=== PATIENT | male | born 1950 | race African-American/Black ===

== ENCOUNTER 2017-01-10 12:42 | Inpatient (IN) | payer MEDICARE ==
[2017-01-10] MEDS ORDERED: NORMAL SALINE 250 ML IV PRN ×2 (13:03)
[2017-01-10] MEDS ORDERED: NORMAL SALINE 1000 ML 1,000 ML IV PRN ×2 (13:03→21:39)
--- NOTE | 2017-01-10 13:03 | ER Document Report ---
ED General - General Stated Complaint: WEAKNESS Mode of Arrival: Medic Information source: Patient, Dr. Office Notes: 66 yr old male presents with complaints of hgb of 5.5 with hypotension, weakness. pt noted ot have initial bright red rectal bleeding sat that turned ot dark black stools. pt takes ibuprofen 400mg bid, denies any other blood thinners. pt denies any vomiting denies any previous similar episodes - HPI Onset: Other - Three-day duration Onset/Duration: Persistent Quality of pain: No pain Severity: Severe Pain Level: Denies Associated symptoms: Weakness Exacerbated by: Denies Relieved by: Denies Similar symptoms previously: No Recently seen / treated by doctor: Yes - Related Data Allergies/Adverse Reactions: aspirin Allergy (Verified 01/10/17 13:10) Past Medical History - Social History Smoking Status: Never Smoker Cigarette use (# per day): No Chew tobacco use (# tins/day): No Smoking Education Provided: No Family History: Reviewed & Not Pertinent Review of Systems - Review of Systems Notes: REVIEW OF SYSTEMS: CONSTITUTIONAL : Denies fever, chills, or sweats. Denies recent illness. EENT: Denies eye, ear, throat, or mouth pain or symptoms. Denies nasal or sinus congestion or discharge. Denies throat, tongue, or mouth swelling or difficulty swallowing. CARDIOVASCULAR: Denies chest pain. Denies palpitations or racing or irregular heart beat. Denies ankle edema. RESPIRATORY: Denies cough, cold, or chest congestion. Denies shortness of breath, difficulty breathing, or wheezing. GASTROINTESTINAL: Denies abdominal pain or distention. Denies nausea, vomiting , or diarrhea. Denies blood in vomitus, stools, or per rectum. Denies black, tarry stools. Denies constipation. GENITOURINARY: Denies difficulty urinating, painful urination, burning, frequency, blood in urine, or discharge. MUSCULOSKELETAL: Denies back or neck pain or stiffness. Denies joint pain or swelling. SKIN: Denies rash, lesions or sores. HEMATOLOGIC : Denies easy bruising or bleeding. LYMPHATIC: Denies swollen, enlarged glands. NEUROLOGICAL: Admits to weakness PSYCHIATRIC: Denies anxiety or stress. Denies depression, suicidal ideation, or homicidal ideation. ALL OTHER SYSTEMS REVIEWED AND NEGATIVE. Dictation was performed using [email or web address] recognition software PHYSICAL EXAMINATION: GENERAL: Well-appearing, well-nourished and in no acute distress. HEAD: Atraumatic, normocephalic. EYES: Pupils equal round and reactive to light, extraocular movements intact, sclera anicteric, conjunctiva are normal. ENT: Nares patent, oropharynx clear without exudates. Moist mucous membranes. NECK: Normal range of motion, supple without lymphadenopathy LUNGS: Breath sounds clear to auscultation bilaterally and equal. No wheezes rales or rhonchi. HEART: Regular rate and rhythm without murmurs ABDOMEN: Soft, nontender, nondistended abdomen. No guarding, no rebound. No masses appreciated. Black stools Musculoskeletal: Normal range of motion, no pitting or edema. No cyanosis. NEUROLOGICAL: Cranial nerves grossly intact. Normal speech, normal gait. Normal sensory, motor exams PSYCH: Normal mood, normal affect. SKIN: Warm, Dry, normal turgor, no rashes or lesions noted. Physical Exam - Vital signs Vitals: Resp BP Pulse Ox 19 84/55 L 100 01/10/17 12:48 01/10/17 12:48 01/10/17 12:48 Course - Re-evaluation Re-evalutation: 01/10/17 13:03 pt immediately evaluated in the room, noted ot be hypotensive, given iv fluids with 2 large bore ivs, emergent blood ordered. Dr Cristina ford 01/10/17 13:14 Dr Cristina ford again , he is in the middle of a procedure , will be given message, emergent blood on the way 01/10/17 13:17 Dr Goldberg will admit to icu, protonix given 01/10/17 13:23 pt continues ot be hypotensive 01/10/17 13:47 Patient's blood pressure is starting to improve, 2 units of blood have been given and he is already received 2 L of fluid - Vital Signs Vital signs: Temp Pulse Resp BP Pulse Ox 33 H 75/53 L 100 01/10/17 13:36 01/10/17 13:36 01/10/17 13:36 - Laboratory Result Diagrams: 01/10/17 12:54 01/10/17 12:54 Laboratory results interpreted by me: 01/10/17 01/10/17 12:54 12:54 Chloride 113 H Carbon Dioxide 16 L Creatinine 1.82 H Est GFR ( Amer) 45 L Est GFR (Non-Af Amer) 38 L Glucose 112 H Calcium 8.3 L Total Bilirubin 3.7 H Direct Bilirubin 2.9 H AST 314 H ALT 198 H Alkaline Phosphatase 214 H Albumin 2.6 L Crossmatch See Detail Critical Care Note - Critical Care Note Total time excluding time spent on procedures (mins): 34 Comments: 34 minutes of critical care time spent in direct contact evaluating and reevaluating the patient, treating symptoms, reviewing labs and studies and speaking with family and consultants excluding any procedures Discharge - Discharge Clinical Impression: GI bleed due to NSAIDs, Hypotensive episode Anemia Qualifiers: Anemia type: other cause Other causes of anemia: other cause, not classified Qualified Code(s): D64.89 - Other specified anemias Condition: Critical Disposition: ADMITTED INPATIENT Admitting Provider: Hospitalist Unit Admitted: ICU
[2017-01-10] MEDS ORDERED: PANTOPRAZOLE SODIUM 40 MG VIAL IV ONE (13:15)
[2017-01-10 13:24] LABS: HEMATOCRIT 17.4 % (37.9-51.0); HGB HCT DIFFERENCE -0.9; MEAN CORPUSCULAR HEMOGLOBIN 40.4 pg (27.0-33.4); MEAN CORPUSCULAR HGB CONC 31.9 g/dL (32.0-36.0); RED BLOOD COUNT 1.37 10^6/uL (4.35-5.55); RED CELL DISTRIBUTION WIDTH 17.5 % (11.5-14.0); WHITE BLOOD COUNT 13.3 10^3/uL (4.0-10.5)
[2017-01-10] MEDS: PANTOPRAZOLE SODIUM 40 MG VIAL IV PRN ×2 (13:26→23:07)
[2017-01-10 13:39] LABS: ALANINE AMINOTRANSFERASE 198 U/L (21-72); ALBUMIN 2.6 g/dL (3.5-5.0); ALKALINE PHOSPHATASE 214 U/L (38-126); ANION GAP 14 (5-19); ASPARTATE AMINO TRANSFERASE 314 U/L (17-59); BILIRUBIN,DIRECT 2.9 mg/dL (0.0-0.4); BILIRUBIN,TOTAL 3.7 mg/dL (0.2-1.3); BLOOD UREA NITROGEN 16 mg/dL (7-20); CALCIUM 8.3 mg/dL (8.4-10.2); CARBON DIOXIDE 16 mmol/L (22-30); CHLORIDE 113 mmol/L (98-107); CREATININE RESULT 1.82 mg/dL (0.52-1.25); GLUCOSE 112 mg/dL (75-110); SODIUM 142.6 mmol/L (137-145)
[2017-01-10 14:03] LABS: HEMOGLOBIN 5.5 g/dL (13.5-17.0)
[2017-01-10] MEDS ORDERED: ONDANSETRON HCL INJ/PF 4 MG/2 ML SDV IV PRN (14:12)
[2017-01-10 14:13] LABS: BASOPHILS % (MANUAL) 0 % (0-2); EOSINOPHILS % (MANUAL) 0 % (0-6); LYMPHOCYTES % (MANUAL) 16 % (13-45); NUCLEATED RED BLOOD CELLS 4 /100 WBC (0); TOTAL CELLS COUNTED 100
[2017-01-10 14:16] LABS: ANISOCYTOSIS 1+; HYPOCHROMASIA 1+; POLYCHROMASIA 1+; TARGET CELLS SLIGHT; TOXIC VACUOLATION PRESENT
[2017-01-10 14:17] LABS: TOXIC GRANULATION SLIGHT
[2017-01-10 14:18] LABS: BAND NEUTROPHILS % (MANUAL) 20 % (3-5); MEAN CORPUSCULAR VOLUME 127 fl (80-97)
[2017-01-10] MEDS ORDERED: DEXTROSE 50%-WATER 25 GM/50 ML DISP.SYRIN IV PRN ×2 (14:24)
[2017-01-10] MEDS ORDERED: DEXTROSE 40% GEL 15 GM TUBE PO PRN ×2 (14:24)
[2017-01-10] MEDS ORDERED: INSULIN LISPRO 100 UNIT/ML 3 ML VIAL SUBCUT PRN (14:24)
[2017-01-10] MEDS ORDERED: GLUCAGON,HUMAN RECOMB 1 MG INJ IM PRN (14:24)
[2017-01-10 14:46] LABS: CREATINE KINASE MB 0.27 ng/mL (<4.55); TROPONIN I 0.024 ng/mL
--- NOTE | 2017-01-10 15:24 | PDOC H&P ---
History of Present Illness Admission Date/PCP: 01/10/17 14:18 Patient complains of: Melanotic stool History of Present Illness: LORE STERLING is a 66 year old male who is followed at the [facility] who presented after went to his primary care doctor found to have a hemoglobin of 5.5. Patient presented to our emergency room and was noted to be hypotensive and was started on IV fluids. Patient also was transfused 4 units of packed red blood cells. Since then his blood pressure has improved. The patient reports that on Monday he had an episode of bright red blood per rectum and then symptoms had melanotic stool. Patient does use nonsteroidals every day. The patient denies any alcohol use. He does relate that he has a history of liver cancer but was uncertain as to whether or not he has any type of variceal problems. The patient while in the patient did have an episode of chest pain this was when his blood pressure was in the 70s. He denies having any cardiac history. He denies any shortness of breath but has felt fatigued for the last several days. He denies any hematemesis. He denies alcohol use. Past Medical History Cardiac Medical History: Reports: Hypertension Endocrine Medical History: Reports: Diabetes Mellitus Type 2 Malignancy Medical History: Reports: Liver Cancer Hematology: Reports: None Infectious Medical History: Reports: None Past Surgical History Past Surgical History: Reports: None Social History Information Source: Patient Lives with: Family Smoking Status: Never Smoker Frequency of Alcohol Use: None Hx Recreational Drug Use: No Drugs: None Hx Prescription Drug Abuse: No - Advance Directive Resuscitation Status: Full Code Family History Family History: DM. denies: CAD Parental Family History Reviewed: Yes Children Family History Reviewed: No Sibling(s) Family History Reviewed.: No Medication/Allergy Home Medications: Amlodipine Besylate [Norvasc 10 mg Tablet] 10 mg PO DAILY 01/10/17 Ibuprofen [Motrin 400 mg Tablet] 400 mg PO Q12HP PRN 01/10/17 Loratadine 10 mg PO DAILY 01/10/17 Metformin HCl [Glucophage] 500 mg PO BID 01/10/17 Terazosin HCl [Hytrin] 5 mg PO DAILY 01/10/17 Allergies/Adverse Reactions: aspirin Allergy (Verified 01/10/17 13:10) Review of Systems Constitutional: PRESENT: fatigue. ABSENT: fever(s), night sweats, weight gain, weight loss Eyes: ABSENT: visual disturbances Ears: ABSENT: hearing changes Cardiovascular: PRESENT: chest pain, dyspnea on exertion. ABSENT: edema, orthropnea, palpitations Respiratory: PRESENT: dyspnea. ABSENT: cough, hemoptysis Gastrointestinal: PRESENT: abdominal pain, melena. ABSENT: coffee ground emesis , hematemesis Genitourinary: ABSENT: dysuria, hematuria Musculoskeletal: ABSENT: joint swelling Integumentary: ABSENT: rash, wounds Neurological: ABSENT: abnormal gait, abnormal speech, confusion, dizziness, focal weakness, syncope Psychiatric: ABSENT: anxiety, depression, homidical ideation, suicidal ideation Hematologic/Lymphatic: ABSENT: easy bleeding, easy bruising Physical Exam Vital Signs: Temp Pulse Resp BP Pulse Ox 97.7 F 35 H 101/66 98 01/10/17 14:20 01/10/17 15:07 01/10/17 15:07 01/10/17 15:07 General appearance: PRESENT: mild distress Head exam: PRESENT: atraumatic, normocephalic Eye exam: PRESENT: conjunctiva pink, EOMI, PERRLA. ABSENT: scleral icterus Ear exam: PRESENT: normal external ear exam Mouth exam: PRESENT: moist, tongue midline Neck exam: ABSENT: carotid bruit, JVD, lymphadenopathy, thyromegaly Respiratory exam: PRESENT: clear to auscultation ariel. ABSENT: rales, rhonchi, wheezes Cardiovascular exam: PRESENT: RRR. ABSENT: diastolic murmur, rubs, systolic murmur GI/Abdominal exam: PRESENT: normal bowel sounds, soft. ABSENT: distended, guarding, mass, organolmegaly, rebound, tenderness Rectal exam: PRESENT: heme (+) stool Extremities exam: ABSENT: calf tenderness, clubbing, pedal edema Neurological exam: PRESENT: alert, awake, oriented to person, oriented to place , oriented to time, oriented to situation, CN II-XII grossly intact. ABSENT: motor sensory deficit Psychiatric exam: PRESENT: flat affect Skin exam: PRESENT: dry, intact, warm. ABSENT: cyanosis, rash Assessment & Plan - Diagnosis (1) Hypotensive episode Is this a current diagnosis for this admission?: YesPlan: Most likely secondary to the underlying GI bleeding. Patient has been receiving IV fluids and has received 4 units of packed red blood cells. (2) GI bleed due to NSAIDs Is this a current diagnosis for this admission?: YesPlan: Most likely secondary to a nonsteroidal induced gastric ulcer. We will transfuse and follow with a hemoglobin. Dr. Evans of GI has been consulted. Will start a Protonix drip along with octreotide drip. Patient has no known history of varices however does have a history of liver cancer by his report. (3) Hypertension Is this a current diagnosis for this admission?: YesPlan: Patient is normally on Norvasc 10 mg daily and we will hold that for now. (4) Diabetes mellitus Is this a current diagnosis for this admission?: YesPlan: Patient normally takes metformin for his diabetes. We will hold that and cover with sliding scale insulin. (5) Anemia Qualifiers: Anemia type: other cause Other causes of anemia: other cause, not classified Qualified Code(s): D64.89 - Other specified anemias Is this a current diagnosis for this admission?: YesPlan: Acute blood loss anemia secondary to GI bleed. Transfuse as needed. (6) Liver cancer Is this a current diagnosis for this admission?: YesPlan: Patient reports a history of liver cancer and has not had treatment by his report. We'll need to get the old records from the [facility]. - Time Critical Time spent with patient: 25-34 minutes - Inpatient Certification Medical Necessity: Need Close Monitoring Due to Risk of Patient Decompensation - Plan Summary Plan Summary: Patient is admitted to the intensive care unit because of his hypotension. 30 minutes of critical care was spent in managing this patient's hypotension and transfusions.
[2017-01-10] MEDS ORDERED: DIPHENHYDRAMINE HCL 50 MG/ML VIAL ONE (15:28)
[2017-01-10] MEDS ORDERED: PROMETHAZINE HCL INJ 25 MG/1 ML VIAL ONE (15:28)
[2017-01-10] MEDS ORDERED: ONDANSETRON HCL INJ/PF 4 MG/2 ML SDV ONE (15:28)
[2017-01-10] MEDS ORDERED: NALOXONE HCL INJ/PF 0.4 MG/1 ML SDV ONE (15:28)
[2017-01-10] MEDS ORDERED: MIDAZOLAM 2 MG/2 ML INJ ONE (15:28)
[2017-01-10] MEDS ORDERED: GLUCAGON,HUMAN RECOMB 1 MG INJ ONE (15:29)
[2017-01-10] MEDS ORDERED: EPINEPHRINE INJ 1 MG/10 ML DISP.SYRIN ONE (15:29)
[2017-01-10] MEDS ORDERED: FENTANYL CITRATE INJ/PF 100 MCG/2 ML AMPUL ONE (15:29)
[2017-01-10] MEDS ORDERED: FLUMAZENIL INJ 0.5 MG/5 ML VIAL IV ONE (15:29)
[2017-01-10] MEDS ORDERED: INFLUENZA ADLT QUAD (36MOS+) 2016-17 VAC 0.5 ML SYR IM PRN (16:18)
[2017-01-10 16:42] LABS: HEMATOCRIT 30.5 % (37.9-51.0); HGB HCT DIFFERENCE -0.5; MEAN CORPUSCULAR HEMOGLOBIN 35.3 pg (27.0-33.4); MEAN CORPUSCULAR HGB CONC 32.9 g/dL (32.0-36.0); RED BLOOD COUNT 2.84 10^6/uL (4.35-5.55); RED CELL DISTRIBUTION WIDTH 27.5 % (11.5-14.0)
[2017-01-10 16:44] LABS: PROTHROMBIN TIME 15.4 SEC (11.4-15.4)
[2017-01-10 16:45] LABS: PARTIAL THROMBOPLASTIN TIME 34.2 SEC (23.5-35.8)
[2017-01-10 17:01] LABS: MEAN CORPUSCULAR VOLUME 107 fl (80-97)
[2017-01-10 17:11] LABS: BAND NEUTROPHILS % (MANUAL) 29 % (3-5); BASOPHILS % (MANUAL) 1 % (0-2); EOSINOPHILS % (MANUAL) 0 % (0-6); LYMPHOCYTES % (MANUAL) 4 % (13-45); NUCLEATED RED BLOOD CELLS 7 /100 WBC (0); TOTAL CELLS COUNTED 100
[2017-01-10 17:17] LABS: ANISOCYTOSIS 4+; POIKILOCYTOSIS 2+; POLYCHROMASIA 2+; SMUDGE CELLS PRESENT
[2017-01-10 17:18] LABS: ACANTHOCYTES 2+; PLATELET CLUMPS PRESENT; TARGET CELLS SLIGHT
[2017-01-10] MEDS: NORMAL SALINE 500 ML with OCTREOTIDE ACETATE 500 MCG IV PRN ×2 (17:22)
--- NOTE | 2017-01-10 17:34 | Operative Report ---
Operative Report DATE OF SURGERY: 01/10/17 Operative Report: The risks benefits and alternatives of the procedure explained to the patient in detail and informed consent is obtained that GIF Olympus video scope was inserted into the patient's mouth and hypopharynx the esophagus is identified intubated and insufflated the scope was then advanced through the esophagus stomach and duodenum retroflexion maneuver is done the esophagus stomach and first and second portions of the duodenum examined PREOPERATIVE DIAGNOSIS: GI bleeding POSTOPERATIVE DIAGNOSIS: Esophageal varices, status post banding OPERATION: EGD with esophageal variceal banding SURGEON: DERIK CRAFT ANESTHESIA: LMAC - 2 mg of Versed, 50 g of fentanyl. Conscious sedation monitoring time 30 minutes. TISSUE REMOVED OR ALTERED: None. COMPLICATIONS: None. ESTIMATED BLOOD LOSS: none. INTRAOPERATIVE FINDINGS: 3 columns of esophageal varices. A band was placed on 2 of the varices, and 2 bands were placed on the third. Bleeding in the stomach was noted. no ulcers or dieulafoy lesion was noted PROCEDURE: Patient tolerated the procedure well. No immediate postprocedure complications are noted. Patient to be kept nothing by mouth. Continue Sandostatin drip for 72 hours. PPI drip Watch for further bleeding Transfuse if necessary Spoke with Dr. Goldberg End-of-life issues need to be discuss
--- NOTE | 2017-01-10 17:43 | PDOC CONSULTATION ---
Consultation Consult Date: 01/10/17 Attending physician:: DERIK CRAFT Consult reason:: GI bleeding. hypotension History of Present Illness Admission Date/PCP: 01/10/17 14:12 History of Present Illness: patient was admitted to the ICU via the ED I was contacted by the ER physician patient had presented with GI bleeding, intermittent since monday he does report some melena patient was provided with blood transfusion and fluids he is stable for procedure he does have a history of liver malignancy ? possible liver hepatoma differential diagnosis would include variceal bleeding, possible peptic ulcer disease with erosion of ulcer into a arterial vessal, vs dieulafoy lesion I have asked the admitting physician to start Sandostatin, and a PPI drip will need urgent EGD done in the MICU once stabalized Past Medical History Cardiac Medical History: Reports: Hypertension Neurological Medical History: Denies: Seizures Endocrine Medical History: Reports: Diabetes Mellitus Type 2 Malignancy Medical History: Reports: Liver Cancer Hematology: Reports: None Infectious Medical History: Reports: None Past Surgical History Past Surgical History: Reports: None Social History Lives with: Family Smoking Status: Never Smoker Frequency of Alcohol Use: None Hx Recreational Drug Use: No Drugs: None Hx Prescription Drug Abuse: No - Advance Directive Resuscitation Status: Full Code Family History Family History: DM. denies: CAD Parental Family History Reviewed: Yes Children Family History Reviewed: Unknown Sibling(s) Family History Reviewed.: Unknown Medication/Allergy Home Medications: Amlodipine Besylate [Norvasc 10 mg Tablet] 10 mg PO DAILY 01/10/17 Ibuprofen [Motrin 400 mg Tablet] 400 mg PO Q12HP PRN 01/10/17 Loratadine 10 mg PO DAILY 01/10/17 Metformin HCl [Glucophage] 500 mg PO BID 01/10/17 Terazosin HCl [Hytrin] 5 mg PO DAILY 01/10/17 Allergies/Adverse Reactions: acetaminophen [From Percocet] Allergy (Verified 01/10/17 16:22) aspirin Allergy (Verified 01/10/17 13:10) oxycodone [From Percocet] Allergy (Verified 01/10/17 16:22) Review of Systems Constitutional: ABSENT: fever(s), headache(s), night sweats, weakness Eyes: ABSENT: visual disturbances Ears: ABSENT: hearing changes Nose, Mouth, and Throat: ABSENT: mouth pain Cardiovascular: ABSENT: orthropnea, palpitations Respiratory: ABSENT: dyspnea, hemoptysis Gastrointestinal: PRESENT: abdominal pain, melena. ABSENT: diarrhea, hematemesis Genitourinary: ABSENT: dysuria, hematuria Musculoskeletal: ABSENT: joint swelling Integumentary: ABSENT: lesions, pruritus Neurological: ABSENT: frequent falls, syncope, tingling, vertigo Endocrine: ABSENT: polydipsia, polyphagia, polyuria Hematologic/Lymphatic: ABSENT: easy bruising Physical Exam Vital Signs: Temp Pulse Resp BP Pulse Ox 97.6 F 85 23 H 92/65 L 95 01/10/17 16:31 01/10/17 17:20 01/10/17 17:20 01/10/17 17:20 01/10/17 17:20 Intake & Output 01/09/17 01/10/17 01/11/17 06:59 06:59 06:59 Intake Total 250 Balance 250 Weight 90.4 kg General appearance: PRESENT: mild distress, well-developed, well-nourished Head exam: PRESENT: atraumatic, normocephalic Eye exam: PRESENT: EOMI, PERRLA. ABSENT: nystagmus, periorbital swelling, scleral icterus Mouth exam: PRESENT: moist Throat exam: ABSENT: tonsillar exudate Neck exam: ABSENT: meningismus, tenderness, thyromegaly Respiratory exam: PRESENT: symmetrical, tachypnea. ABSENT: wheezes Cardiovascular exam: PRESENT: RRR, +S1, +S2. ABSENT: rubs GI/Abdominal exam: PRESENT: soft. ABSENT: Mitchell's sign, rebound, tenderness Gentrourinary exam: ABSENT: lesions Extremities exam: ABSENT: joint swelling Musculoskeletal exam: PRESENT: full ROM Neurological exam: PRESENT: alert, awake, oriented to time, oriented to situation, CN II-XII grossly intact Psychiatric exam: PRESENT: appropriate affect Skin exam: PRESENT: normal color. ABSENT: mottled, pallor, petechiae, urticaria , vesicles Results Laboratory Results: 01/10/17 16:30 01/10/17 16:30 WBC 13.0 H RBC 2.84 L Hgb 10.0 L D Hct 30.5 L MCV 107 H D MCH 35.3 H MCHC 32.9 RDW 27.5 H Plt Count 102 L Seg Neutrophils % Not Reportable Lymphocytes % Not Reportable Monocytes % Not Reportable Eosinophils % Not Reportable Basophils % Not Reportable Absolute Neutrophils Not Reportable Absolute Lymphocytes Not Reportable Absolute Monocytes Not Reportable Absolute Eosinophils Not Reportable Absolute Basophils Not Reportable Assessment & Plan - Diagnosis (1) GI (gastrointestinal hemorrhage) Plan: patient does have a history of NSAID use however with his history of liver malignancy , differential is provided as above patient needs to be admitted to the ICU once stabalized, can have EGD done Risks, benefits and alternatives are discussed with the patient in detail further recommendations to follow transfuse if necessary start Protonix drip start Sandsostatin give dose of Ceftriaxone if no allergies - Time Critical Time spent with patient: 35 or more minutes
[2017-01-10 20:10] LABS: CREATINE KINASE MB 0.61 ng/mL (<4.55); TROPONIN I 0.034 ng/mL
--- NOTE | 2017-01-10 20:24 | EKG REPORT ---
SEVERITY:- NORMAL ECG - SINUS RHYTHM : Confirmed by: Rustam Craig 10-Jan-2017 20:23:46
[2017-01-10] MEDS: MORPHINE SULFATE 10 MG/ML INJ IV PRN (21:29)
[2017-01-10 21:54] LABS: HEMATOCRIT 31.1 % (37.9-51.0); HGB HCT DIFFERENCE -1.1; MEAN CORPUSCULAR HEMOGLOBIN 35.1 pg (27.0-33.4); MEAN CORPUSCULAR HGB CONC 32.3 g/dL (32.0-36.0); MEAN CORPUSCULAR VOLUME 109 fl (80-97); RED BLOOD COUNT 2.86 10^6/uL (4.35-5.55); RED CELL DISTRIBUTION WIDTH 29.2 % (11.5-14.0); WHITE BLOOD COUNT 12.3 10^3/uL (4.0-10.5)
[2017-01-10 22:34] LABS: BAND NEUTROPHILS % (MANUAL) 37 % (3-5); BASOPHILS % (MANUAL) 0 % (0-2); EOSINOPHILS % (MANUAL) 0 % (0-6); LYMPHOCYTES % (MANUAL) 4 % (13-45); NUCLEATED RED BLOOD CELLS 14 /100 WBC (0); TOTAL CELLS COUNTED 100
[2017-01-10 22:42] LABS: ACANTHOCYTES 1+; ANISOCYTOSIS 4+; OVALOCYTES SLIGHT; POIKILOCYTOSIS 2+; POLYCHROMASIA 2+; TARGET CELLS SLIGHT; TOXIC GRANULATION 1+; TOXIC VACUOLATION PRESENT
[2017-01-10 22:43] LABS: PLATELET CLUMPS PRESENT
[2017-01-11 01:07] LABS: ARTERIAL BLOOD BASE EXCESS -23.4 mmol/L; ARTERIAL BLOOD O2 SATURATION 93.9 % (94-98)
[2017-01-11] MEDS ORDERED: CEFTRIAXONE INJ 1000 MG VIAL IV PRN (01:12)
[2017-01-11] MEDS ORDERED: PHYTONADIONE INJ 10 MG/1 ML AMPULE SUBCUT ONE (01:15)
[2017-01-11] MEDS ORDERED: ALBUMIN HUMAN 50 ML IV ONE (01:15)
[2017-01-11] MEDS ORDERED: CEFTRIAXONE 1 GM/D5W RTU 1 GM/50 ML RTUPB IV SCH ×2 (01:30→22:00)
[2017-01-11 01:32] LABS: HEMATOCRIT 32.6 % (37.9-51.0); HEMOGLOBIN 10.3 g/dL (13.5-17.0); HGB HCT DIFFERENCE -1.7; MEAN CORPUSCULAR HEMOGLOBIN 35.1 pg (27.0-33.4); MEAN CORPUSCULAR HGB CONC 31.6 g/dL (32.0-36.0); MEAN CORPUSCULAR VOLUME 111 fl (80-97); RED BLOOD COUNT 2.94 10^6/uL (4.35-5.55); RED CELL DISTRIBUTION WIDTH 29.9 % (11.5-14.0)
[2017-01-11 01:35] LABS: CREATINE KINASE MB 1.53 ng/mL (<4.55); TROPONIN I 0.076 ng/mL
[2017-01-11 01:39] LABS: ALANINE AMINOTRANSFERASE 501 U/L (21-72); ALKALINE PHOSPHATASE 216 U/L (38-126); BLOOD UREA NITROGEN 16 mg/dL (7-20); CALCIUM 7.5 mg/dL (8.4-10.2); CREATININE RESULT 2.76 mg/dL (0.52-1.25); GLUCOSE 80 mg/dL (75-110); TOTAL PROTEIN 7.8 g/dL (6.3-8.2)
[2017-01-11] MEDS ORDERED: SODIUM BICARBONATE 8.4% INJ 50 MEQ/50 ML DISP.SYRIN ONE (01:42)
[2017-01-11] MEDS ORDERED: CEFTRIAXONE 1 GM/D5W RTU 1 GM/50 ML RTUPB IV ONE (01:45)
[2017-01-11 01:51] LABS: BAND NEUTROPHILS % (MANUAL) 41 % (3-5); BASOPHILS % (MANUAL) 0 % (0-2); EOSINOPHILS % (MANUAL) 0 % (0-6); LYMPHOCYTES % (MANUAL) 10 % (13-45); TOTAL CELLS COUNTED 100
[2017-01-11 01:52] LABS: ASPARTATE AMINO TRANSFERASE 1261 U/L (17-59)
[2017-01-11 01:54] LABS: ANISOCYTOSIS 4+; BURR CELLS 2+; POIKILOCYTOSIS 2+; POLYCHROMASIA 2+; ROULEAUX 2+; TOXIC VACUOLATION PRESENT
[2017-01-11 01:56] LABS: NUCLEATED RED BLOOD CELLS 19 /100 WBC (0)
[2017-01-11 01:57] LABS: WHITE BLOOD COUNT 8.4 10^3/uL (4.0-10.5)
[2017-01-11 02:01] LABS: CHLORIDE 119 mmol/L (98-107); SODIUM 146.7 mmol/L (137-145)
[2017-01-11 02:05] LABS: ANION GAP 21 (5-19)
[2017-01-11 02:13] LABS: BILIRUBIN,TOTAL 7.7 mg/dL (0.2-1.3); CARBON DIOXIDE 7 mmol/L (22-30); POTASSIUM 5.6 mmol/L (3.6-5.0)
[2017-01-11] MEDS ORDERED: DEXTROSE 5%-WATER 1000 ML 1,000 ML with SODIUM BICARBONATE 150 MEQ IV PRN ×2 (02:19)
[2017-01-11] MEDS ORDERED: SODIUM BICARBONATE 8.4% INJ 50 MEQ/50 ML DISP.SYRIN IV PRN (02:20)
[2017-01-11] MEDS: MORPHINE SULFATE 10 MG/ML INJ IV PRN (02:48)
[2017-01-11] MEDS ORDERED: PROPOFOL 100 ML IV ONE (03:23)
[2017-01-11] MEDS ORDERED: PROPOFOL INJ 200 MG/20 ML VIAL IV ONE (03:26)
[2017-01-11] MEDS: NORMAL SALINE 500 ML with OCTREOTIDE ACETATE 500 MCG IV PRN ×2 (03:43)
--- NOTE | 2017-01-11 04:10 | PDOC PROGRESS REPORT ---
Subjective Progress Note for:: 01/10/17 Subjective:: M.D. is notified by patient's nurse for tachypnea, delirium and oliguria. Patient's history is reviewed and he is examined bedside where he is found to be poorly responsive on BiPAP. Physical Exam Vital Signs: Temp Pulse Resp BP Pulse Ox 97.0 F 88 26 H 173/89 H 94 01/11/17 02:31 01/10/17 23:48 01/11/17 02:31 01/11/17 02:31 01/11/17 02:31 Intake & Output 01/09/17 01/10/17 01/11/17 11:59 11:59 11:59 Intake Total 356 Output Total 40 Balance 316 Weight 90.4 kg General appearance: PRESENT: severe distress. ABSENT: cooperative Head exam: PRESENT: atraumatic, normocephalic Eye exam: PRESENT: conjunctiva pink, EOMI, PERRLA. ABSENT: scleral icterus Ear exam: PRESENT: normal external ear exam Mouth exam: PRESENT: moist, tongue midline Neck exam: ABSENT: carotid bruit, JVD, lymphadenopathy, thyromegaly Respiratory exam: PRESENT: accessory muscle use, chest wall tenderness, crackles , decreased breath sounds, retraction, symmetrical, tachypnea. ABSENT: rhonchi , stridor, wheezes Cardiovascular exam: PRESENT: gallop, RRR, +S1, +S2, tachycardia. ABSENT: rubs Pulses: ABSENT: normal carotid pulses, normal radial pulses, normal femoral pulses Vascular exam: PRESENT: pallor GI/Abdominal exam: PRESENT: ascites, diminished bowel sounds, distended, firm, guarding, hypoactive bowel sounds, mass, rigid, tenderness Rectal exam: PRESENT: deferred Extremities exam: PRESENT: full ROM. ABSENT: calf tenderness, clubbing, pedal edema Neurological exam: PRESENT: altered Skin exam: PRESENT: dry, intact, warm. ABSENT: cyanosis, rash Results Laboratory Results: 01/11/17 00:58 01/11/17 00:58 01/10/17 01/10/17 01/11/17 16:30 21:45 00:58 WBC 13.0 H 12.3 H 8.4 RBC 2.84 L 2.86 L 2.94 L Hgb 10.0 L D 10.0 L 10.3 L Hct 30.5 L 31.1 L 32.6 L MCV 107 H D 109 H 111 H MCH 35.3 H 35.1 H 35.1 H MCHC 32.9 32.3 31.6 L RDW 27.5 H 29.2 H 29.9 H Plt Count 102 L 107 L 115 L Seg Neutrophils % Not Reportable Not Reportable Not Reportable Lymphocytes % Not Reportable Not Reportable Not Reportable Monocytes % Not Reportable Not Reportable Not Reportable Eosinophils % Not Reportable Not Reportable Not Reportable Basophils % Not Reportable Not Reportable Not Reportable Absolute Neutrophils Not Reportable Not Reportable Not Reportable Absolute Lymphocytes Not Reportable Not Reportable Not Reportable Absolute Monocytes Not Reportable Not Reportable Not Reportable Absolute Eosinophils Not Reportable Not Reportable Not Reportable Absolute Basophils Not Reportable Not Reportable Not Reportable Carbonic Acid HCO3/H2CO3 Ratio ABG pH ABG pCO2 ABG pO2 ABG HCO3 ABG O2 Saturation ABG Base Excess FiO2 Sodium Potassium Chloride Carbon Dioxide Anion Gap BUN Creatinine Est GFR ( Amer) Est GFR (Non-Af Amer) Glucose Calcium Total Bilirubin AST ALT Alkaline Phosphatase Ammonia Total Protein Albumin 01/11/17 01/11/17 01/11/17 00:58 01:00 01:39 WBC RBC Hgb Hct MCV MCH MCHC RDW Plt Count Seg Neutrophils % Lymphocytes % Monocytes % Eosinophils % Basophils % Absolute Neutrophils Absolute Lymphocytes Absolute Monocytes Absolute Eosinophils Absolute Basophils Carbonic Acid 0.68 L HCO3/H2CO3 Ratio 8:1 ABG pH 7.03 L* ABG pCO2 22.6 L ABG pO2 96.8 ABG HCO3 5.8 L ABG O2 Saturation 93.9 L ABG Base Excess -23.4 FiO2 30% Sodium 146.7 H Potassium 5.6 H D Chloride 119 H Carbon Dioxide 7 L* Anion Gap 21 H BUN 16 Creatinine 2.76 H Est GFR ( Amer) 28 L Est GFR (Non-Af Amer) 23 L Glucose 80 Calcium 7.5 L Total Bilirubin 7.7 H D AST 1261 H ALT 501 H Alkaline Phosphatase 216 H Ammonia 18.5 Total Protein 7.8 Albumin 3.0 L 01/10/17 01/10/17 01/11/17 19:00 19:00 00:58 Creatine Kinase 434 H 567 H CK-MB (CK-2) 0.61 Troponin I 0.034 01/11/17 00:58 Creatine Kinase CK-MB (CK-2) 1.53 Troponin I 0.076 Impressions: Abdomen Ultrasound 01/10/17 00:00 IMPRESSION: 1. Numerous liver lesions consistent with metastasis. The largest measures 10.7 x 8.9 x 7.0 cm. 2. 7.5 x 6.9 x 5.6 cm lesion adjacent to the left kidney. This could represent adrenal mass or exophytic renal mass. Correlation with CT is recommended. 3. Small amount of ascites. Abdomen/Pelvis CT 01/11/17 00:00 IMPRESSION: 1. Moderate intraperitoneal free air and free fluid ; differential diagnosis includes bowel rupture. 2. Portal venous gas. 3. 13 cm gaseous distension associated with the right pericolic gutter and possibly the right hepatic lobe. 4. Moderate bilateral lower lobar pneumonia -effusion. Assessment & Plan - Diagnosis (1) Pneumoperitoneum Is this a current diagnosis for this admission?: YesPlan: Given the patient's history of EGD with banding for upper GI bleed concerned for possibility of perforation and CT imaging of the abdomen pelvis reveal massive pneumoperitoneum complicated by liver cancer with metastases, renal failure, delirium and sepsis surgicallist Dr. Shelton and skills auditor Dr. Yoder for consulted. After surgical evaluation he is felt to be a poor surgical candidate given underlying comorbidity recommending comfort measures only. That said he is intubated with supportive care and far too unstable to consider transfer to tertiary care. Efforts in contacting next of kin or power of assistant district attorney are unsuccessful as no one is listed in his medical history. (2) Sepsis Is this a current diagnosis for this admission?: YesPlan: Given the patient's history of liver cancer with varices a spontaneous bacterial peritonitis was initially suspected and he was subsequently started on Rocephin, albumin and IV fluid challenge. Subsequent labs revealed severe metabolic acidosis without compensation he was placed on D5W with bicarbonate and intubated. (3) Renal failure Is this a current diagnosis for this admission?: YesPlan: Avoid nephrotoxic meds and doses reevaluate chemistry IV fluid challenge (4) GI (gastrointestinal hemorrhage) Is this a current diagnosis for this admission?: YesPlan: Hemoglobin appears to have stabilized (5) Liver cancer Is this a current diagnosis for this admission?: YesPlan: Details are unavailable as medical records at the [facility] were unavailable discussion with radiology suggest perforation related to extensive underlying malignancy with metastasis.
[2017-01-11] MEDS ORDERED: PROPOFOL 100 ML IV PRN (04:20)
[2017-01-11] MEDS ORDERED: MORPHINE SULFATE 10 MG/ML INJ IV PRN (04:22)
[2017-01-11 08:16] VITALS: BP 95/73
--- NOTE | 2017-01-11 08:27 | EKG REPORT ---
SEVERITY:- BORDERLINE ECG - SINUS RHYTHM LOW VOLTAGE THROUGHOUT : Confirmed by: Rustam Craig 11-Jan-2017 08:26:29
[2017-01-11 08:33] LABS: ABSOLUTE EOSINOPHILS # (AUTO) 0.3 10^3/uL (0.0-0.6); ABSOLUTE LYMPHOCYTES (AUTO) 1.1 10^3/uL (0.5-4.7); ABSOLUTE MONOCYTES (AUTO) 0.4 10^3/uL (0.1-1.4); ABSOLUTE NEUT (AUTO) 1.9 10^3/uL (1.7-8.2); BASOPHILS % (AUTO) 0.2 % (0-2); EOSINOPHILS % (AUTO) 8.5 % (0-6); HGB HCT DIFFERENCE -1.9; LYMPHOCYTES % (AUTO) 30.4 % (13-45); MEAN CORPUSCULAR HEMOGLOBIN 36.8 pg (27.0-33.4); MONOCYTES % (AUTO) 10.8 % (3-13); RED BLOOD COUNT 1.14 10^6/uL (4.35-5.55); RED CELL DISTRIBUTION WIDTH 31.1 % (11.5-14.0); SEGMENTED NEUTROPHILS % (AUTO) 50.1 % (42-78); WHITE BLOOD COUNT 3.7 10^3/uL (4.0-10.5)
[2017-01-11 08:44] LABS: HEMOGLOBIN 4.2 g/dL (13.5-17.0)
[2017-01-11 08:45] LABS: HEMATOCRIT 14.5 % (37.9-51.0)
[2017-01-11 08:46] LABS: ALANINE AMINOTRANSFERASE 349 U/L (21-72); ALBUMIN 1.4 g/dL (3.5-5.0); ALKALINE PHOSPHATASE 90 U/L (38-126); ANION GAP 15 (5-19); BILIRUBIN,DIRECT 3.1 mg/dL (0.0-0.4); BLOOD UREA NITROGEN 13 mg/dL (7-20); CHLORIDE 128 mmol/L (98-107); CREATINE KINASE 354 U/L (55-170); GLUCOSE 54 mg/dL (75-110); POTASSIUM 5.6 mmol/L (3.6-5.0); SODIUM 149.4 mmol/L (137-145)
[2017-01-11 08:48] LABS: MEAN CORPUSCULAR VOLUME 127 fl (80-97)
--- NOTE | 2017-01-11 08:49 | PDOC PROGRESS REPORT ---
Subjective Progress Note for:: 01/11/17 Subjective:: Patient underwent upper endoscopy yesterday. He had several columns of esophageal varices that was banded. He had been stable for about 6 hours following the procedure. I was contacted overnight by Dr. Abreu. Patient was noted to have pneumoperitoneum. He did not have a pneumothorax. Surgery was consulted. They deferred on surgery. On CT scan he was noted to have a pocket of gas in the liver in the location of the right hepatic lobe adjacent to the right colon. It appears that he had metastases and had perforated bowel. Occasion likely in the right colon. He is currently stable right now question of whether he is a surgical candidate ,if not question of whether he needs to be on comfort care I've spoken with Dr. Goldberg with regards to the case. Physical Exam Vital Signs: Temp Pulse Resp BP Pulse Ox 97.2 F 77 16 95/73 L 96 01/11/17 08:00 01/11/17 08:00 01/11/17 08:00 01/11/17 08:00 01/11/17 08:00 Intake & Output 01/10/17 01/11/17 01/12/17 06:59 06:59 06:59 Intake Total 1691 Output Total 50 0 Balance 1641 0 Weight 91.1 kg General appearance: PRESENT: morbidly obese Head exam: PRESENT: atraumatic, normocephalic Eye exam: PRESENT: EOMI, PERRLA. ABSENT: nystagmus, periorbital swelling Throat exam: ABSENT: tonsillar exudate Neck exam: ABSENT: meningismus, tenderness, thyromegaly Respiratory exam: PRESENT: crackles, tachypnea Cardiovascular exam: PRESENT: RRR, +S1, +S2 GI/Abdominal exam: PRESENT: distended, rebound, rigid, tenderness. ABSENT: Mitchell's sign Skin exam: PRESENT: normal color. ABSENT: mottled, pallor, petechiae, urticaria , vesicles Results Laboratory Results: 01/10/17 01/10/17 01/11/17 16:30 21:45 00:58 WBC 13.0 H 12.3 H 8.4 RBC 2.84 L 2.86 L 2.94 L Hgb 10.0 L D 10.0 L 10.3 L Hct 30.5 L 31.1 L 32.6 L MCV 107 H D 109 H 111 H MCH 35.3 H 35.1 H 35.1 H MCHC 32.9 32.3 31.6 L RDW 27.5 H 29.2 H 29.9 H Plt Count 102 L 107 L 115 L Seg Neutrophils % Not Reportable Not Reportable Not Reportable Lymphocytes % Not Reportable Not Reportable Not Reportable Monocytes % Not Reportable Not Reportable Not Reportable Eosinophils % Not Reportable Not Reportable Not Reportable Basophils % Not Reportable Not Reportable Not Reportable Absolute Neutrophils Not Reportable Not Reportable Not Reportable Absolute Lymphocytes Not Reportable Not Reportable Not Reportable Absolute Monocytes Not Reportable Not Reportable Not Reportable Absolute Eosinophils Not Reportable Not Reportable Not Reportable Absolute Basophils Not Reportable Not Reportable Not Reportable Carbonic Acid HCO3/H2CO3 Ratio ABG pH ABG pCO2 ABG pO2 ABG HCO3 ABG O2 Saturation ABG Base Excess FiO2 Sodium Potassium Chloride Carbon Dioxide Anion Gap BUN Creatinine Est GFR ( Amer) Est GFR (Non-Af Amer) Glucose Calcium Total Bilirubin AST ALT Alkaline Phosphatase Ammonia Total Protein Albumin 01/11/17 01/11/17 01/11/17 00:58 01:00 01:39 WBC RBC Hgb Hct MCV MCH MCHC RDW Plt Count Seg Neutrophils % Lymphocytes % Monocytes % Eosinophils % Basophils % Absolute Neutrophils Absolute Lymphocytes Absolute Monocytes Absolute Eosinophils Absolute Basophils Carbonic Acid 0.68 L HCO3/H2CO3 Ratio 8:1 ABG pH 7.03 L* ABG pCO2 22.6 L ABG pO2 96.8 ABG HCO3 5.8 L ABG O2 Saturation 93.9 L ABG Base Excess -23.4 FiO2 30% Sodium 146.7 H Potassium 5.6 H D Chloride 119 H Carbon Dioxide 7 L* Anion Gap 21 H BUN 16 Creatinine 2.76 H Est GFR ( Amer) 28 L Est GFR (Non-Af Amer) 23 L Glucose 80 Calcium 7.5 L Total Bilirubin 7.7 H D AST 1261 H ALT 501 H Alkaline Phosphatase 216 H Ammonia 18.5 Total Protein 7.8 Albumin 3.0 L 01/10/17 01/10/17 01/11/17 19:00 19:00 00:58 Creatine Kinase 434 H 567 H CK-MB (CK-2) 0.61 Troponin I 0.034 01/11/17 01/11/17 00:58 08:00 Creatine Kinase Cancelled CK-MB (CK-2) 1.53 Troponin I 0.076 Impressions: Abdomen Ultrasound 01/10/17 00:00 IMPRESSION: 1. Numerous liver lesions consistent with metastasis. The largest measures 10.7 x 8.9 x 7.0 cm. 2. 7.5 x 6.9 x 5.6 cm lesion adjacent to the left kidney. This could represent adrenal mass or exophytic renal mass. Correlation with CT is recommended. 3. Small amount of ascites. Abdomen/Pelvis CT 01/11/17 00:00 IMPRESSION: 1. Moderate intraperitoneal free air and free fluid ; differential diagnosis includes bowel rupture. 2. Portal venous gas. 3. 13 cm gaseous distension associated with the right pericolic gutter and possibly the right hepatic lobe. 4. Moderate bilateral lower lobar pneumonia -effusion. Chest X-Ray 01/11/17 00:00 IMPRESSION: .1. Moderate free intra-abdominal air consistent with recent abnormal CT of the abdomen/pelvis. 2. Moderate pulmonary edema and/or multifocal pneumonia/CHF with bilateral effusions. 3. Endotracheal tube. Assessment & Plan - Diagnosis (1) GI (gastrointestinal hemorrhage) Is this a current diagnosis for this admission?: YesPlan: Esophageal variceal banding yesterday. No further bleeding. Keep on Sandostatin and Protonix for now. (2) Liver cancer Is this a current diagnosis for this admission?: YesPlan: Likely primary liver hepatoma with metastases. [facility]. (3) Pneumoperitoneum Is this a current diagnosis for this admission?: YesPlan: Likely right colon perforation in the area of the right hepatic lobe. No pneumothorax as would be expected with an esophageal perforation. Surgery has been deferred due to multiple comorbidities. - Time Time Spent with patient: 25-34 minutes
[2017-01-11 08:54] LABS: CREATINE KINASE MB 2.27 ng/mL (<4.55)
[2017-01-11 08:57] LABS: TROPONIN I 0.163 ng/mL
[2017-01-11 09:13] LABS: ASPARTATE AMINO TRANSFERASE 1007 U/L (17-59)
[2017-01-11 09:14] LABS: CARBON DIOXIDE 6 mmol/L (22-30)
[2017-01-11 09:15] LABS: BILIRUBIN,TOTAL 3.5 mg/dL (0.2-1.3)
--- NOTE | 2017-01-11 09:59 | Death Summary ---
Summary Date : 01/11/17 Time of :: 08:15 Autopsy: No Resuscitation Status: Full Code Primary Care Provider: [facility] - Final Diagnosis (1) Liver cancer Is this a current diagnosis for this admission?: Yes (2) Hypotensive episode Is this a current diagnosis for this admission?: Yes (3) GI bleed due to NSAIDs Is this a current diagnosis for this admission?: Yes (4) Hypertension Is this a current diagnosis for this admission?: Yes (5) Diabetes mellitus Is this a current diagnosis for this admission?: Yes (6) Anemia Is this a current diagnosis for this admission?: Yes Hospital Course:: Mr. Veras was a 66-year-old gentleman who had a history of hepatocellular carcinoma is likely secondary to cirrhosis who was normally followed at the [facility]. The patient had outpatient labs done on the and he was notified by the PA on the that he had a hemoglobin of 5.5 and to go to the emergency room. He presented to the emergency room and was found to have a hemoglobin of 5 and he became hypotensive. The patient was resuscitated with IV fluids and was transfused a total of 4 units of packed red blood cells. GI was consulted and they performed an upper endoscopy and he was found to have esophageal varices with some bleeding and he underwent banding. The patient no further evidence for blood loss. About 6 hours after his endoscopy however he became unresponsive and hypotensive and was intubated. CT scan was done and showed pneumoperitoneum. He had a gas collection along the liver most likely representing a perforation from metastatic hepatocellular carcinoma. There was no evidence for pneumomediastinum so the possibility of EGD causing perforation is considered unlikely. The patient was evaluated by surgery however because of his multiple comorbidities and terminal prognosis with hepatocellular carcinoma, deferred on doing any surgery for repair of his pneumoperitoneum. The patient became hypotensive and bradycardic and the decision was made not to do any further treatment. He quickly became asystolic and at 8:15 AM on . When The patient presented I asked if there was anyone I could call to let them know how he was doing and he stated that there was no at home and there is no one to contact. I have tried to call the numbers listed for emergency contacts obtained from the PA and have left messages for the family. The cause of is hepatocellular carcinoma with metastases causing bowel perforation. Contributing factors are cirrhosis with variceal bleeding.
[2017-01-11] MEDS ORDERED: SUCCINYLCHOLINE CHLORIDE INJ 200 MG/10 ML VIAL ONE (10:34)
--- NOTE | 2017-01-11 12:54 | CONSULTATION REPORT E ---
Consultation Report NAME: LORE STERLING : 1950 AGE: 66Y DATE: 01/10/2017 606 A TO: MARI BERRY M.D. FROM: Requesting Physician HISTORY OF PRESENT ILLNESS: Thank you for asking me to see this 66-year-old -Citizen Of [place] male, who was admitted yesterday. No obvious past medical history was able to be obtained from the patient. He was a very poor historian. Records from the [facility] have not been obtained yet. However, the patient was admitted yesterday and found to be in dire condition. He was evaluated and found to have bleeding gastroesophageal varices and underwent esophageal varies banding by the gastrointestinal service at this hospital. However tonight, the patient was found to be very acidotic and gaseous. A CT scan of the abdomen and pelvis was done, which revealed a large amount of pneumoperitoneum together with several worrisome findings in his liver and left kidney, which both presented with lesions, apparently metastatic tumor. PAST MEDICAL HISTORY: Not fully known, however, the patient suffers from: 1. Type 2 diabetes. 2. Hypertension. 3. Renal failure. 4. Anemia. 5. Gastrointestinal bleeding due to the use of NSAIDs. 6. Metastasis or primary lesions or liver as well as renal metastasis or primary lesions from the left kidney. ALLERGIES: The patient is allergic to: 1. ACETAMINOPHEN. 2. ASPIRIN. 3. OXYCODONE. SOCIAL HISTORY: Unknown. FAMILY HISTORY: Unknown. MEDICATIONS: The patient is currently on: 1. Ceftriaxone 1 g IV q.24h. 2. Insulin sliding scale. 3. Morphine 2 mg IV q.4h p.r.n. for pain. 4. Zofran 4 mg IV q.4h p.r.n. for nausea and vomiting. 5. Protonix drip. 6. Propofol continuous IV drip. 7. Normal saline fluids 250 mL per hour. REVIEW OF LABORATORIES: White blood cell count 8.4, hemoglobin and hematocrit 10/32, and platelet count 115,000. PT and PT/INR within normal limits. Electrolytes: Sodium 146, potassium 5.6, and BUN and creatinine 16 and 2.7 respectively. Liver profile shows a bilirubin with total 7.7 with direct of 7, AST and ALT elevated respectively, alkaline phosphatase 216, and CPK 567. Troponins is within normal limits. Ammonia level normal at 18.5. Albumin 3.0. normal at 1.5. Blood gases: PH of 7.0, pCO2 of 22, pO2 of 96, and base excess of -23. CT scan of abdomen and pelvis reveals a moderate amount of free intraperitoneal air and fluid. Portal vein gas 15 cm gaseous distention associated with the right possible right hepatic lobe with bilateral pneumonia with presence of a 4 x 5 x 6 cm hepatic lesion, which might represent tumor. Ultrasound of the abdomen shows multiple liver lesions, largest 10 x 8 x 7 cm and multiple left kidney lesions, the largest measuring 7.5 x 7 x 6 cm, which could represent a neoplasia. PHYSICAL EXAMINATION: GENERAL: The patient is intubated, sedated, and non-responsive. HEENT: ET tube is present. NECK: Supple. LUNGS: Clear bilaterally. CHEST: Symmetric bilaterally. HEART: Regular rhythm/rate. ABDOMEN: Distended and tympanitic. No bowel sounds appreciated. No surgical scars identified. EXTREMITIES: Motionless and atraumatic. NEUROLOGIC SYSTEM: Not evaluated because of the patient being under deep IV sedation. ASSESSMENT: 1. Severe acidosis, pH 7.0. 2. Status post banding of esophageal varices today. 3. CT scan of abdomen and pelvis demonstrating intraperitoneal area. 4. CT scan of the abdomen showing a large mass located in the right lateral aspect of the abdomen and possibly larger liver tumor extending into the peritoneal cavity. 5. Ultrasound of the liver shows multiple lesions, possible neoplasia as well as left kidney mass, most likely neoplasia. PLAN: 1. Due to the presence of large mass over the liver and the kidney as well as presence of esophageal varices, the patient's general condition is extremely poor. 2. I do not believe that performing operation on this patient may either save his life or improve his quality of life. 3. Therefore, my recommendation would be to make the patient comfort care only due to the fragility of performing operation in this patient. DICTATING PHYSICIAN: MARI BERRY M.D. [id number] PHY#: [id number] ID: [id number] JOB#: [id number] ACCT: [id number] cc:MARI BERRY M.D. >
[2017-01-11 15:41] LABS: PATH REVIEW PATHOLOGIST REVIEWED
[2017-01-11 15:43] LABS: PATH REVIEW PATHOLOGIST REVIEWED
== END 2017-01-11 08:30 | disposition left against medical advice (07) | DRG 368 ==
LOC: ER 12:42 → EH 14:12 → UNDOADMIN 14:18 → ICU 15:16
PROVIDERS: ADMIT Internal Medicine; ATTEND Internal Medicine
PROC: 30233N1 Transfusion of Nonautologous Red Blood Cells into Peripheral Vein, Percutaneous Approach (ICD-10-PCS; 2017-01-10)
PROC: 5A09357 Assistance with Respiratory Ventilation, Less than 24 Consecutive Hours, Continuous Positive Airway Pressure (ICD-10-PCS; 2017-01-10)
PROC: 06L34CZ Occlusion of Esophageal Vein with Extraluminal Device, Percutaneous Endoscopic Approach (ICD-10-PCS; principal; 2017-01-10 16:00)
PROC: 0BH17EZ Insertion of Endotracheal Airway into Trachea, Via Natural or Artificial Opening (ICD-10-PCS; 2017-01-11)
PROC: 5A1935Z Respiratory Ventilation, Less than 24 Consecutive Hours (ICD-10-PCS; 2017-01-11)
DX: I85.11 Secondary esophageal varices with bleeding (principal); K63.1 Perforation of intestine (nontraumatic); C22.0 Liver cell carcinoma; C79.02 Secondary malignant neoplasm of left kidney and renal pelvis; K92.1 Melena; T39.395A Adverse effect of other nonsteroidal anti-inflammatory drugs [NSAID], initial encounter; N19 Unspecified kidney failure; I10 Essential (primary) hypertension; E11.9 Type 2 diabetes mellitus without complications; K66.8 Other specified disorders of peritoneum; K74.60 Unspecified cirrhosis of liver; Z88.6 Allergy status to analgesic agent; Z83.3 Family history of diabetes mellitus
CPT/HCPCS: 31500; 36415; 36430; 43244; 71010; 74176; 76700; 80048; 80053; 80076; 82140; 82550; 82553; 82803; 82962; 84484; 85025; 85610; 85730; 86850; 86870; 86900; 86901; 86920; 86922; 93005; 93010; 94002; 94660; 96365; 99291; J0171; J0330; J0696; J1200; J1610; J2250; J2270; J2310; J2354; J2405; J2550; J2704; J3010; J3430; J3490; J7030; J7040; J7060; P9016; P9047; S0164